=== PATIENT | male | born 1945 | race Caucasian/White ===

== ENCOUNTER 2017-08-16 22:40 | Emergency (ER) | payer OTHER, MEDICARE ==
[~2017-08-16] VITALS: Ht 182.9 cm; Wt 95.3 kg
[2017-08-16 22:51] VITALS: BP_SYST 163
== END 2017-08-16 23:43 | disposition left against medical advice (07) ==
LOC: SED 22:40
DX: M54.9 Dorsalgia, unspecified (principal); Z53.21 Procedure and treatment not carried out due to patient leaving prior to being seen by health care provider

== ENCOUNTER 2023-10-28 17:28 | Inpatient (IN) | payer BC, MEDICARE, OTHER ==
[~2023-10-28] VITALS: Ht 185.4 cm; Wt 97.5 kg
[2023-10-28 17:40] VITALS: BP_SYST 153; PULSE 87; RESP 20; TEMP 97; O2SAT 94
[2023-10-28 18:18] LABS: BASOPHILS % (AUTO) 0.3 % (0.0-2.0); HEMATOCRIT 39.6 % (36-54); HEMOGLOBIN 14.2 g/dL (14.0-18.0); LYMPHOCYTES # (AUTO) 0.6 K/uL (1.0-5.5); LYMPHOCYTES % (AUTO) 7.7 % (20.5-51.5); MEAN CORPUSCULAR HEMOGLOBIN 36 pg (27-31); MEAN CORPUSCULAR HGB CONC 36 % (32-36); MEAN CORPUSCULAR VOLUME 100 fL (79.0-98.0); MONOCYTES # (AUTO) 1.6 K/uL (0.0-1.0); MONOCYTES % (AUTO) 19.2 % (1.7-9.3); NEUTROPHILS % (AUTO) 72.8 % (40.0-70.0); PLATELET COUNT (AUTO) 197 K/uL (130-430); RED BLOOD CELL COUNT(AUTO) 3.95 MIL/uL (4.2-6.2); WHITE BLOOD COUNT (AUTO) 8.3 K/uL (4.8-10.8)
[2023-10-28 18:30] LABS: INR 1.2 (0.80-1.20); PROTHROMBIN TIME 12.2 SECS (9.5-12.5)
[2023-10-28 18:33] LABS: ALANINE AMINOTRANSFERASE 36 U/L (12-78); ALBUMIN 2.7 g/dL (3.4-4.8); ANION GAP 8 (5-15); ASPARTATE AMINOTRANSFERASE 21 U/L (10-37); CALCIUM 7.9 mg/dL (8.4-11.0); CARBON DIOXIDE 23 mmol/L (23-29); CHLORIDE 104 mmol/L (98-107); GLUCOSE 145 mg/dL (74-106); POTASSIUM 3.6 mmol/L (3.5-5.1); SODIUM SERUM 135 mmol/L (136-145); TOTAL BILIRUBIN 0.6 mg/dL (0.0-1.0); TOTAL PROTEIN, SERUM 8.9 g/dL (6.4-8.3); UREA NITROGEN, BLOOD 18 mg/dL (8-21)
[2023-10-28 18:38] LABS: BILIRUBIN,DIRECT 0.2 mg/dL (0.0-0.3); CREATINE KINASE, TOTAL 147 U/L (39-308)
[2023-10-28 19:22] LABS: INFLUENZA TYPE A Negative (NEGATIVE); INFLUENZA TYPE B NEGATIVE (NEGATIVE)
[2023-10-28] MEDS: NACL 0.9% 1,000 ML IV ONE (21:24)
[2023-10-28] MEDS: ACETAMINOPHEN 325 MG TABLET PO PRN (22:50)
[2023-10-28] MEDS: CHOLECALCIFEROL (VITAMIN D3) 2,000 UNIT TABLET PO SCH (22:50)
[2023-10-28] MEDS: ASCORBIC ACID 500 MG TABLET PO SCH (22:50)
[2023-10-28 23:04] VITALS: BP_SYST 156; PULSE 85; RESP 20; TEMP 98.2
[2023-10-29] VITALS: BP_SYST 106; PULSE 71; RESP 18; TEMP 97.6; O2SAT 96
[2023-10-29 00:17] VITALS: O2SAT 95
[2023-10-29 04:19] LABS: BILIRUBIN,URINE NEGATIVE (NEGATIVE); CLARITY/URINE CLEAR (CLEAR); COLOR,URINE YELLOW (YELLOW); GLUCOSE,URINE NEGATIVE (NEGATIVE); KETONES,URINE NEGATIVE (NEGATIVE); LEUKOCYTE ESTERASE ,URINE NEGATIVE (NEGATIVE); NITRITE, URINE NEGATIVE (NEGATIVE); PROTEIN URINE NEGATIVE (NEGATIVE); UROBILINOGEN,URINE 0.2 (0.2-1.0)
[2023-10-29 04:31] LABS: BLOOD, URINE TRACE (NEGATIVE)
[2023-10-29 05:30] LABS: BACTERIA,URINE RARE /HPF (None Seen); RBC,URINE 0-3 /HPF (0-3); WBC,URINE 0-3 /HPF (0-3)
[2023-10-29 07:21] LABS: ALANINE AMINOTRANSFERASE 33 U/L (12-78); ALBUMIN 2.6 g/dL (3.4-4.8); ANION GAP 6 (5-15); ASPARTATE AMINOTRANSFERASE 23 U/L (10-37); CALCIUM 8.2 mg/dL (8.4-11.0); CARBON DIOXIDE 26 mmol/L (23-29); CHLORIDE 106 mmol/L (98-107); CREATININE 1.23 mg/dL (0.55-1.30); GLUCOSE 106 mg/dL (74-106); POTASSIUM 3.6 mmol/L (3.5-5.1); SODIUM SERUM 138 mmol/L (136-145); TOTAL BILIRUBIN 0.5 mg/dL (0.0-1.0); TOTAL PROTEIN, SERUM 8.5 g/dL (6.4-8.3); UREA NITROGEN, BLOOD 17 mg/dL (8-21)
[2023-10-29 07:37] LABS: HEMATOCRIT 41.1 % (36-54); HEMOGLOBIN 14.6 g/dL (14.0-18.0); MEAN CORPUSCULAR HEMOGLOBIN 36 pg (27-31); MEAN CORPUSCULAR HGB CONC 36 % (32-36); MEAN CORPUSCULAR VOLUME 101 fL (79.0-98.0); PLATELET COUNT (AUTO) 171 K/uL (130-430); RED BLOOD CELL COUNT(AUTO) 4.08 MIL/uL (4.2-6.2); RED CELL DISTRIBUTION WIDTH 14.1 % (9.0-15.0)
[2023-10-29 07:46] LABS: WHITE BLOOD COUNT (AUTO) 7.5 K/uL (4.8-10.8)
[2023-10-29 08:45] VITALS: BP_SYST 140; PULSE 88; RESP 18; TEMP 98.5; O2SAT 96
[2023-10-29 11:09] LABS: ATYPICAL LYMPHOCYTES % 4 % (0-0); BAND % (MANUAL) 3 % (0-6); BASOPHILS % (MANUAL) 0 % (0-2); EOSINOPHILS % (MANUAL) 0 % (0-7); LYMPHOCYTES % (MANUAL) 6 % (20-46); MONOCYTES % (MANUAL) 23 % (0-11)
[2023-10-29 11:10] LABS: PLATELET ESTIMATE ADEQUATE (ADEQUATE); WBC MORPHOLOGY TOXIC VACUOLATION
[2023-10-29 11:24] VITALS: BP_SYST 145; PULSE 83; RESP 21; TEMP 98.1; O2SAT 95
[2023-10-29] MEDS ORDERED: MAG-AL HYDROX/SIMETH 30 ML UDC PO PRN (11:30)
[2023-10-29] MEDS ORDERED: METOCLOPRAMIDE HCL 10 MG/2 ML VIAL IVP PRN (11:30)
[2023-10-29] MEDS ORDERED: MILK OF MAGNESIA 30 ML UDC PO PRN (11:30)
[2023-10-29] MEDS: FAMOTIDINE PF 20 MG/2 ML VIAL IVP ONE (12:03)
[2023-10-29] MEDS: ENOXAPARIN SODIUM 40 MG/0.4 ML SYRINGE SUBCUT ONE (12:04)
[2023-10-29] MEDS: DOCUSATE SODIUM 250 MG CAPSULE PO ONE (12:04)
[2023-10-29] MEDS: D5LR 1,000 ML IV SCH (12:05)
[2023-10-29 17:03] VITALS: BP_SYST 113; PULSE 82; RESP 20; TEMP 98.4; O2SAT 93
[2023-10-29 20:05] VITALS: BP_SYST 151; PULSE 86; RESP 20; O2SAT 95
[2023-10-29] MEDS: DOCUSATE SODIUM 250 MG CAPSULE PO SCH (21:07)
[2023-10-29] MEDS: ENOXAPARIN SODIUM 40 MG/0.4 ML SYRINGE SUBCUT SCH (21:08)
[2023-10-30 00:28] VITALS: BP_SYST 139; PULSE 77; RESP 20; TEMP 97.7; O2SAT 96
[2023-10-30 07:54] VITALS: BP_SYST 147; PULSE 70; RESP 18; TEMP 99.7; O2SAT 97
[2023-10-30 08:18] VITALS: O2SAT 97
[2023-10-30] MEDS: FAMOTIDINE 20 MG TABLET PO SCH (09:32)
[2023-10-30] MEDS: guaiFENesin/DEXTROMETHORPHAN 10 ML UDC PO PRN (10:35)
[2023-10-30] MEDS: ONDANSETRON HCL 4 MG/2 ML VIAL IVP PRN (10:44)
[2023-10-30 11:48] VITALS: BP_SYST 158; PULSE 74; RESP 20; TEMP 98.4; O2SAT 94
[2023-10-30] MEDS: AZITHROMYCIN 500 MG in NS 250 ML IV ONE (13:11)
[2023-10-30 16:55] VITALS: BP_SYST 140; PULSE 66; RESP 21; TEMP 98.8; O2SAT 97
[2023-10-30 22:00] VITALS: BP_SYST 145; PULSE 68; RESP 18; TEMP 98.9; O2SAT 97
[2023-10-31 00:06] VITALS: BP_SYST 140; PULSE 87; RESP 18; TEMP 99; O2SAT 93
[2023-10-31 04:19] LABS: BASOPHILS % (AUTO) 0.6 % (0.0-2.0); EOSINOPHILS # (AUTO) 0.1 K/uL (0.0-0.4); EOSINOPHILS % (AUTO) 3.7 % (0.0-4.0); HEMATOCRIT 37.2 % (36-54); HEMOGLOBIN 13.4 g/dL (14.0-18.0); LYMPHOCYTES # (AUTO) 0.9 K/uL (1.0-5.5); LYMPHOCYTES % (AUTO) 23.6 % (20.5-51.5); MEAN CORPUSCULAR HEMOGLOBIN 36 pg (27-31); MEAN CORPUSCULAR HGB CONC 36 % (32-36); MEAN CORPUSCULAR VOLUME 100 fL (79.0-98.0); MONOCYTES # (AUTO) 1.3 K/uL (0.0-1.0); NEUTROPHILS # (AUTO) 1.6 K/uL (1.8-7.7); NEUTROPHILS % (AUTO) 39.1 % (40.0-70.0); PLATELET COUNT (AUTO) 138 K/uL (130-430); RED BLOOD CELL COUNT(AUTO) 3.74 MIL/uL (4.2-6.2); RED CELL DISTRIBUTION WIDTH 13.8 % (9.0-15.0)
[2023-10-31 04:41] LABS: ALANINE AMINOTRANSFERASE 30 U/L (12-78); ALBUMIN 2.3 g/dL (3.4-4.8); ANION GAP 8 (5-15); ASPARTATE AMINOTRANSFERASE 26 U/L (10-37); CALCIUM 8.5 mg/dL (8.4-11.0); CARBON DIOXIDE 26 mmol/L (23-29); CHLORIDE 106 mmol/L (98-107); CREATININE 1.29 mg/dL (0.55-1.30); GLUCOSE 123 mg/dL (74-106); POTASSIUM 3.4 mmol/L (3.5-5.1); SODIUM SERUM 140 mmol/L (136-145); TOTAL BILIRUBIN 0.3 mg/dL (0.0-1.0); TOTAL PROTEIN, SERUM 7.7 g/dL (6.4-8.3); UREA NITROGEN, BLOOD 11 mg/dL (8-21)
[2023-10-31 08:30] VITALS: BP_SYST 129; PULSE 79; RESP 21; TEMP 97.9; O2SAT 97; O2SAT 98
[2023-10-31] MEDS: AZITHROMYCIN 500 MG in NS 250 ML IV SCH (09:44)
[2023-10-31] MEDS: LIDOCAINE VISCOUS 2%, 15 ML UDC MM PRN (09:44)
[2023-10-31 10:25] VITALS: BP_SYST 129; PULSE 79; O2SAT 97
[2023-10-31] MEDS ORDERED: BUDESONIDE 0.5 MG/2 ML AMPUL.NEB INH SCH (10:30)
[2023-10-31 11:23] VITALS: O2SAT 98
[2023-10-31] MEDS: BUDESONIDE 0.5 MG/2 ML AMPUL.NEB INH ONE (11:23)
[2023-10-31] MEDS: POTASSIUM CHLORIDE 20 MEQ/PKT PACKET PO ONE (17:51)
[2023-10-31 19:20] VITALS: O2SAT 98
[2023-10-31 20:00] VITALS: BP_SYST 142; PULSE 68; RESP 18; TEMP 98.6
[2023-10-31] MEDS: BUDESONIDE 0.5 MG/2 ML AMPUL.NEB INH SCH (20:11)
[2023-11-01] VITALS (8 sets, daily range): BP systolic 131–154; PULSE 66–81; RESP 17–18; TEMP 97.8–98.8; O2SAT 95–98
[2023-11-01 06:01] LABS: BASOPHILS % (AUTO) 0.7 % (0.0-2.0); EOSINOPHILS # (AUTO) 0.2 K/uL (0.0-0.4); HEMATOCRIT 36.9 % (36-54); HEMOGLOBIN 13.1 g/dL (14.0-18.0); LYMPHOCYTES # (AUTO) 1.2 K/uL (1.0-5.5); LYMPHOCYTES % (AUTO) 30.6 % (20.5-51.5); MEAN CORPUSCULAR HEMOGLOBIN 36 pg (27-31); MEAN CORPUSCULAR HGB CONC 36 % (32-36); MEAN CORPUSCULAR VOLUME 100 fL (79.0-98.0); MONOCYTES % (AUTO) 24.7 % (1.7-9.3); NEUTROPHILS # (AUTO) 1.6 K/uL (1.8-7.7); PLATELET COUNT (AUTO) 141 K/uL (130-430); RED BLOOD CELL COUNT(AUTO) 3.68 MIL/uL (4.2-6.2); RED CELL DISTRIBUTION WIDTH 13.9 % (9.0-15.0)
[2023-11-01 06:33] LABS: ALANINE AMINOTRANSFERASE 31 U/L (12-78); ALBUMIN 2.2 g/dL (3.4-4.8); ANION GAP 7 (5-15); ASPARTATE AMINOTRANSFERASE 24 U/L (10-37); CALCIUM 8.6 mg/dL (8.4-11.0); CARBON DIOXIDE 26 mmol/L (23-29); CHLORIDE 107 mmol/L (98-107); CREATININE 1.23 mg/dL (0.55-1.30); GLUCOSE 107 mg/dL (74-106); POTASSIUM 3.4 mmol/L (3.5-5.1); SODIUM SERUM 140 mmol/L (136-145); TOTAL BILIRUBIN 0.3 mg/dL (0.0-1.0); TOTAL PROTEIN, SERUM 7.4 g/dL (6.4-8.3); UREA NITROGEN, BLOOD 13 mg/dL (8-21)
[2023-11-01] MEDS ORDERED: IPRA4AER INH (18:12)
[2023-11-01] MEDS ORDERED: BUDE6HFA INH (18:13)
[2023-11-01] MEDS ORDERED: DOXY100C5 PO (18:14)
[2023-11-01] MEDS ORDERED: GUAI5SYR PO (18:16)
[2023-11-01] MEDS: POTASSIUM CHLORIDE 20 MEQ TABLET.ER PO ONE (21:13)
[2023-11-02 00:49] VITALS: BP_SYST 151; PULSE 72; RESP 18; TEMP 97.7; O2SAT 98
[2023-11-02 05:02] LABS: BASOPHILS % (AUTO) 0.4 % (0.0-2.0); EOSINOPHILS # (AUTO) 0.2 K/uL (0.0-0.4); HEMATOCRIT 38.7 % (36-54); HEMOGLOBIN 13.7 g/dL (14.0-18.0); LYMPHOCYTES # (AUTO) 1.4 K/uL (1.0-5.5); LYMPHOCYTES % (AUTO) 24.9 % (20.5-51.5); MEAN CORPUSCULAR HEMOGLOBIN 35 pg (27-31); MEAN CORPUSCULAR HGB CONC 35 % (32-36); MEAN CORPUSCULAR VOLUME 100 fL (79.0-98.0); MONOCYTES # (AUTO) 0.9 K/uL (0.0-1.0); MONOCYTES % (AUTO) 16.7 % (1.7-9.3); PLATELET COUNT (AUTO) 155 K/uL (130-430); RED BLOOD CELL COUNT(AUTO) 3.89 MIL/uL (4.2-6.2); RED CELL DISTRIBUTION WIDTH 13.7 % (9.0-15.0); WHITE BLOOD COUNT (AUTO) 5.5 K/uL (4.8-10.8)
[2023-11-02 05:21] LABS: ANION GAP 8 (5-15); CALCIUM 8.7 mg/dL (8.4-11.0); CARBON DIOXIDE 25 mmol/L (23-29); CHLORIDE 105 mmol/L (98-107); CREATININE 1.22 mg/dL (0.55-1.30); GLUCOSE 104 mg/dL (74-106); POTASSIUM 3.9 mmol/L (3.5-5.1); SODIUM SERUM 138 mmol/L (136-145); UREA NITROGEN, BLOOD 13 mg/dL (8-21)
[2023-11-02 07:58] VITALS: BP_SYST 153; PULSE 66; RESP 20; TEMP 98.5; O2SAT 95
[2023-11-02 08:09] VITALS: O2SAT 98
[2023-11-02 11:06] VITALS: BP_SYST 148; PULSE 67; RESP 18; TEMP 98; O2SAT 96
[2023-11-02] MEDS ORDERED: DEC1 PO (15:01)
[2023-11-02] MEDS: METHYLPREDNISOLONE SOD SUCC 40 MG/ML VIAL IVP ONE (16:19)
[2023-11-02 16:30] VITALS: BP_SYST 140; PULSE 69; RESP 18; TEMP 98; O2SAT 95
[2023-11-02 16:38] VITALS: BP_SYST 140; PULSE 72; RESP 18; TEMP 98; O2SAT 96
== END 2023-11-02 17:30 | disposition home health service (06) | DRG 177 ==
LOC: SED 17:28 → STU 20:24 → SMU 11-02 10:18
PROVIDERS: ADMIT Internal Medicine; ATTEND Internal Medicine
PROC: XW033E5 Introduction of Remdesivir Anti-infective into Peripheral Vein, Percutaneous Approach, New Technology Group 5 (ICD-10-PCS; principal; 2023-10-30)
DX: U07.1 COVID-19 (principal); E43 Unspecified severe protein-calorie malnutrition; J12.82 Pneumonia due to coronavirus disease 2019; J44.1 Chronic obstructive pulmonary disease with (acute) exacerbation; N17.9 Acute kidney failure, unspecified; Z68.28 Body mass index [BMI] 28.0-28.9, adult; E86.0 Dehydration; G47.33 Obstructive sleep apnea (adult) (pediatric); I10 Essential (primary) hypertension; G62.9 Polyneuropathy, unspecified
CPT/HCPCS: 36415; 70450-TC; 70551; 71045; 71250-TC; 80048; 80053; 80076; 81000; 81001; 81015; 82550; 83605; 84484; 85007; 85025; 85027; 85379; 85610; 85730; 93005; 94640; 94760; 96360; 97110-GP; 97116-GP; 97530-GP; 99285; G0378; J0456; J1030; J1650; J2001; J2405; J3490; J7050; J7626